=== PATIENT | male | born 1940 | race Hispanic/Latino ===

== ENCOUNTER 2019-03-15 05:51 | Day surgery (SDC) | payer MEDICARE ==
[2019-03-13 10:46] VITALS: BP 111/74
[2019-03-13 10:47] LABS: BASOPHILS % (AUTO) 0.8 % (0.0-5.0); EOSINOPHILS % (AUTO) 0.7 % (0.0-8.0); LYMPHOCYTES % (AUTO) 13.4 % (21.0-51.0); MEAN CORPUSCULAR HEMOGLOBIN 33.5 pg (27.0-33.0); MEAN CORPUSCULAR HGB CONC 34.6 g/dL (32.0-36.0); MEAN CORPUSCULAR VOLUME 96.7 fL (79-99); MONOCYTES % (AUTO) 6.2 % (3.0-13.0); NEUTROPHILS % (AUTO) 78.9 % (40.0-77.0); PLATELET COUNT (AUTO) 347 K/uL (130-400); RED BLOOD CELL COUNT(AUTO) 4.23 MIL/uL (4.50-6.20); RED CELL DISTRIBUTION WIDTH 13.5 % (11.0-15.5); WHITE BLOOD COUNT (AUTO) 10.6 K/uL (4.8-10.8)
[2019-03-13 10:57] LABS: POTASSIUM 4.7 mmol/L (3.5-5.1)
[2019-03-13 11:00] LABS: INR 1.01 (0.85-1.15); PARTIAL THROMBOPLASTIN TIME 32.7 SEC (26.3-35.5); PROTHROMBIN TIME 10.6 SEC (9.6-11.6)
[~2019-03-15] VITALS: Ht 172.7 cm; Wt 93.9 kg
[2019-03-15] VITALS (8 sets, daily range): BP systolic 100–136; BP diastolic 58–81
[~2019-03-15 05:51] MED LIST: APIX5TAB PO; ASPI81TA40 PO; CALCIUM PO; FINA5TAB41 PO; LEVE750T10 PO; METO-391 PO; MULTIVITAMIN PO; PHEN100C23 PO; PHEN100C9 PO; SENN-107 PO; SERT50TA12 PO; SIMV80TA91 PO; SODIUM CHLORIDE 0.9% 1000ML 1,000 ML IV SCH; TADA10TA PO; TAMS-1 PO; VIT1TABL6 PO
[2019-03-15] MEDS ORDERED: HEPARIN SODIUM 1000UNIT/ML 10ML VIAL ONE (09:48)
[2019-03-15] MEDS ORDERED: MIDAZOLAM HCL 1 MG/ML 2ML VIAL ONE ×2 (09:48→11:31)
[2019-03-15] MEDS ORDERED: MEPERIDINE-PF 25 MG/ML SYG ONE ×2 (09:48→11:31)
[2019-03-15] MEDS ORDERED: LIDOCAINE HCL 2% 20ML ONE (09:49)
[2019-03-15] MEDS ORDERED: IODIXANOL 320 MG/ML 100 ML VIAL ONE (10:19)
--- NOTE | 2019-03-15 13:00 | NUR ---
PATIENT RETURNED FROM [facility] IN NO DISTRESS, RIGHT FEMORAL SITE SHOWS NO ACTIVE BLEEDING OR HEMATOMA, FAMILY AND PATIENT EDUCATED ON IMPORTANCE OF BEING ON BEDREST AND RISK OF BLEEDING. PATIENT AND FAMILY ENCOURAGED TO CALL FOR ASSISTANCE IF NEEDED.
--- NOTE | 2019-03-15 13:30 | NUR ---
NI SIGNS OF SEIZURE ACTIVITY, SIDE RAILS COVERED FOR PATIENTS SAFETY. CALL [facility] WITHIN REACH.
--- NOTE | 2019-03-15 14:39 | NUR ---
NO SEIZURE ACTIVITY NOTED , PATIENT STATES FEELING WELL.
--- NOTE | 2019-03-15 16:00 | NUR ---
PT ASSISTED UP FROM BED AND TO CHANGE WITHOUT DIFFICULTY, RIGHT GROIN SHOWS NO ACTIVE BLEEDING. PATIENT STATES FEELING WELL.
--- NOTE | 2019-03-15 16:10 | NUR ---
PT DISCHARGED IN NO DISTRESS VIA WHEELCHAIR.
== END 2019-03-15 16:10 | disposition home or self-care (01) ==
LOC: DAH 05:51
PROVIDERS: ATTEND Internal Medicine Cardiovascular Disease
DX: I48.3 Typical atrial flutter (principal); I10 Essential (primary) hypertension; Z68.33 Body mass index [BMI] 33.0-33.9, adult; G40.909 Epilepsy, unspecified, not intractable, without status epilepticus; Z79.899 Other long term (current) drug therapy; Z98.890 Other specified postprocedural states; Z79.01 Long term (current) use of anticoagulants
CPT/HCPCS: 36415; 80048; 85025; 85610; 85730; 93005; 93613; 93621; 93653; A4606; A4649; C1730 ×4; C1732; C1769; C1893; C1894 ×2; J1644; J2175 ×2; J2250 ×2; J3490; J7030; Q9967; 99156; 99157

== ENCOUNTER → 2022-01-07 | Outpatient (CLI) | payer MEDICARE ==
[~2022-01-07] MED LIST changes: -APIX5TAB PO; -CALCIUM PO; +CARB15DR3 OP; +LATA7.5D OP; -MULTIVITAMIN PO; +PROP15DR OP; +ROSU40 PO; +SERT-439 PO; -SERT50TA12 PO; -SIMV80TA91 PO; -SODIUM CHLORIDE 0.9% 1000ML 1,000 ML IV SCH; -TADA10TA PO; -VIT1TABL6 PO; +WARF10TA45 PO; +WARF6TAB49 PO
== END | disposition home or self-care (01) ==
LOC: RAH 09:20
PROVIDERS: ATTEND Internal Medicine Cardiovascular Disease
DX: I70.1 Atherosclerosis of renal artery (principal); N28.1 Cyst of kidney, acquired; I10 Essential (primary) hypertension
CPT/HCPCS: 76770; 93975